=== PATIENT | female | born 1970 | race Caucasian/White ===

== ENCOUNTER 2017-01-04 10:37 | Emergency (ER) | payer MEDICAID ==
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
== END 2017-01-04 11:10 | disposition home or self-care (01) ==
LOC: ER 10:37
DX: M54.2 Cervicalgia (principal); F32.9 Major depressive disorder, single episode, unspecified; Z90.710 Acquired absence of both cervix and uterus